=== PATIENT | female | born 1990 | race Caucasian/White ===

== ENCOUNTER 2017-04-22 15:06 | Inpatient (IN) ==
[2017-04-22] MEDS ORDERED: TYLENOL PO PRN (21:09)
[2017-04-22] MEDS ORDERED: BRETHINE SUBQ PRN (21:09)
[2017-04-22] MEDS ORDERED: PITOCIN 30 UNITS/LR 30 UNITS/500 ML IV.SOLN IV SCH (21:09)
[2017-04-22] MEDS ORDERED: PEPCID IV PRN (21:09)
[2017-04-22] MEDS ORDERED: ZOFRAN IV PRN (21:09)
[2017-04-22] MEDS ORDERED: STADOL IV PRN ×2 (21:09)
[2017-04-22] MEDS ORDERED: KEFZOL 1 GM/D5W 1 GM/50 ML IVPB IV PRN (21:09)
[2017-04-22] MEDS ORDERED: AMBIEN PO PRN (21:09)
[2017-04-22] MEDS: LR 1,000 ML IV SCH (21:40)
[2017-04-22 22:10] LABS: URINE SOURCE VOIDED
[2017-04-22 22:10] LABS: MANUAL DIFF NEEDED? NO
[2017-04-22 22:16] LABS: BASO% 0.2 % (0.0-0.8); EOS# 0.31 X1000 (0.0-0.7); EOS% 2.1 % (0.0-10.0); HEMATOCRIT 32.8 % (37.0-47.0); HEMOGLOBIN 10.8 g/dL (12.0-16.0); IMM GRAN% 0.7 % (0.0-0.5); LYMPH% 19.1 % (20.5-51.1); MCH 30.3 PG (27-31); MCHC 32.9 g/dL (33-37); MCV 91.9 FL (81-99); MONO# 0.98 X1000 (0.11-0.59); MONO% 6.7 % (1.7-9.3); MPV 11.9 FL (7.4-10.4); NEUT% 71.2 % (42.2-75.2); PLT 179 X1000 (130-400); RBC 3.57 XMIL (4.2-5.4)
[2017-04-22 22:19] LABS: BILIRUBIN URINE NEGATIVE (NEGATIVE); BLOOD URINE NEGATIVE (NEGATIVE); CLARITY SL. CLOUDY (CLEAR); COLOR YELLOW; GLUCOSE URINE NEGATIVE (NEGATIVE); LEUKOCYTES URINE NEGATIVE (NEGATIVE); NITRITE URINE NEGATIVE (NEGATIVE); PH URINE 6.5; PROTEIN URINE NEGATIVE (NEGATIVE); UROBILINOGEN URINE NORMAL
[2017-04-22 22:20] LABS: UR AMPHETAMINES QUAL NONE DETECTED (NONE DETECT); UR BARBITUATES QUAL NONE DETECTED (NONE DETECT); UR BENZODIAZEPIN QUAL NONE DETECTED (NONE DETECT); UR CANNABINOIDS QUAL NONE DETECTED (NONE DETECT); UR COCAINE QUAL NONE DETECTED (NONE DETECT); UR MDMA QUAL NONE DETECTED (NONE DETECT); UR METHADONE QUAL NONE DETECTED (NONE DETECT); UR METHAMPHETAMINE QUAL NONE DETECTED (NONE DETECT); UR OPIATES QUAL NONE DETECTED (NONE DETECT); UR OXYCODONE QUAL NONE DETECTED (NONE DETECT); UR PCP QUAL NONE DETECTED (NONE DETECT); UR TCA QUAL NONE DETECTED (NONE DETECT)
[2017-04-22] MEDS ORDERED: CYTOTEC PO ONE (23:00)
[2017-04-23] MEDS ORDERED: CYTOTEC PO SCH (03:00)
[2017-04-23] MEDS: STADOL IV PRN ×2 (04:11→08:35)
[2017-04-23] MEDS ORDERED: MINERAL OIL ONE (07:19)
[2017-04-23] MEDS ORDERED: XYLOCAINE-MPF 1% INJ ONE (07:20)
[2017-04-23] MEDS ORDERED: FENTANYL-BUPIV-NS 2 MCG-0.1% 200 ML EPIDURAL SCH (08:00)
[2017-04-23] MEDS: LR 1,000 ML IV SCH (08:25)
[2017-04-23] MEDS ORDERED: BENADRYL PO PRN (13:18)
[2017-04-23] MEDS ORDERED: BOOSTRIX VACCINE IM ONE (13:18)
[2017-04-23] MEDS ORDERED: PITOCIN 20 UNITS/LR 20 UNITS/1,000 ML IV.SOLN IV SCH (13:18)
[2017-04-23] MEDS ORDERED: XYLOCAINE-MPF 1% INJ PRN (13:18)
[2017-04-23] MEDS ORDERED: PITOCIN IM PRN (13:18)
[2017-04-23] MEDS ORDERED: HYDROXYZINE IM PRN (13:18)
[2017-04-23] MEDS ORDERED: AMBIEN PO PRN (13:18)
[2017-04-23] MEDS ORDERED: CYTOTEC PO PRN (13:18)
[2017-04-23] MEDS ORDERED: PERI MEDS (DERMOPLAST/NUPERCAINAL/TUCKS) MISC PRN (13:18)
[2017-04-23] MEDS ORDERED: HYDROXYZINE PO PRN (13:18)
[2017-04-23] MEDS ORDERED: M-M-R II VACCINE SUBQ ONE (13:18)
[2017-04-23] MEDS ORDERED: BENADRYL IV PRN (13:18)
[2017-04-23] MEDS ORDERED: MINERAL OIL PO PRN (13:18)
[2017-04-23] MEDS ORDERED: PITOCIN 30 UNITS/LR 30 UNITS/500 ML IV.SOLN IV ONE (13:18)
--- NOTE | 2017-04-23 14:23 | OPERATIVE NOTE ---
PROCEDURE DATE: 04/23/2017 PREOPERATIVE DIAGNOSES: 1. Intrauterine at 39. 2. Labor induction. 3. Tobacco use. POST DELIVERY DIAGNOSES: 1. Intrauterine at 39. 2. Labor induction. 3. Tobacco use. 4. Nuchal cord x1. PROCEDURE: Vaginal delivery. PHYSICIAN: Dr. Jamarcus Weldon. ANESTHESIA: Epidural with Dr. Oden. FINDINGS: Viable male , 9 and 10 Apgars, 8 pounds 11 ounces. No lacerations or tears. Cord was 3 vessels. Placenta was spontaneous, intact. ESTIMATED BLOOD LOSS: 100 mL. Please refer to Ms. De La Torre' records. She was admitted last night and received Cytotec and the morning she was started on Pitocin, was artificially ruptured and received epidural anesthesia and labored throughout the morning without distress or dystocia. Routine complete cervical dilatation at approximately 12:30. Began pushing and soon after crowned, at which point the bed was broken down. She was prepped and draped. With continued pushing, she delivered a viable male infant, occiput anterior, over an intact perineum. Nuchal cord was reduced around the body as it delivered and the infant was placed on mother's abdomen. Cord was doubly clamped and cut. The care of infant was taken over by nursery personnel. Cord blood was obtained. Three vessels were noted in the cord. Then gentle traction on the cord resulted in delivery of an intact placenta after approximately 3 minutes. It was inspected and then discarded. Inspection of the vagina and perineum did not reveal any lacerations. Vaginal sweep revealed no foreign material or clots so all counts were correct. Estimated blood loss 100 mL. Expect routine . cc: Jamarcus Weldon MD
[2017-04-23] MEDS: MOTRIN PO PRN (16:53)
[2017-04-23] MEDS: NORCO-5 PO PRN (20:20)
[2017-04-23] MEDS: PERICOLACE PO SCH (20:20)
[2017-04-23 21:21] LABS: UR AMPHETAMINES QUAL NONE DETECTED (NONE DETECT); UR BARBITUATES QUAL NONE DETECTED (NONE DETECT); UR BENZODIAZEPIN QUAL NONE DETECTED (NONE DETECT); UR CANNABINOIDS QUAL NONE DETECTED (NONE DETECT); UR COCAINE QUAL NONE DETECTED (NONE DETECT); UR MDMA QUAL NONE DETECTED (NONE DETECT); UR METHADONE QUAL NONE DETECTED (NONE DETECT); UR METHAMPHETAMINE QUAL NONE DETECTED (NONE DETECT); UR OPIATES QUAL NONE DETECTED (NONE DETECT); UR OXYCODONE QUAL NONE DETECTED (NONE DETECT); UR PCP QUAL NONE DETECTED (NONE DETECT); UR TCA QUAL NONE DETECTED (NONE DETECT)
[2017-04-24] MEDS: MOTRIN PO PRN ×3 (02:26→21:20)
[2017-04-24] MEDS: NORCO-5 PO PRN (02:27)
[2017-04-24 05:15] LABS: MANUAL DIFF NEEDED? NO
[2017-04-24 05:25] LABS: BASO% 0.2 % (0.0-0.8); EOS# 0.22 X1000 (0.0-0.7); EOS% 1.5 % (0.0-10.0); HEMATOCRIT 29.5 % (37.0-47.0); HEMOGLOBIN 9.5 g/dL (12.0-16.0); IMM GRAN# 0.06 X1000 (0.0-0.04); IMM GRAN% 0.4 % (0.0-0.5); LYMPH# 2.11 X1000 (1.2-3.4); LYMPH% 14.3 % (20.5-51.1); MCH 30.2 PG (27-31); MCHC 32.2 g/dL (33-37); MCV 93.7 FL (81-99); MONO# 1.32 X1000 (0.11-0.59); MONO% 8.9 % (1.7-9.3); MPV 11.9 FL (7.4-10.4); NEUT% 74.7 % (42.2-75.2); PLT 138 X1000 (130-400); RBC 3.15 XMIL (4.2-5.4)
[2017-04-24] MEDS: NORCO-10 PO PRN ×3 (07:09→19:45)
--- NOTE | 2017-04-24 11:01 | PROGRESS NOTE ---
DATE: 04/23/2017 SUBJECTIVE: day 1. No complaints. PHYSICAL EXAMINATION: Within normal limits. Hemoglobin 9.5. PLAN: Routine care. Discharge in the morning. cc: Jamarcus Weldon MD
[2017-04-24] MEDS: PERICOLACE PO SCH (21:20)
[2017-04-25] MEDS: MOTRIN PO PRN (07:28)
[2017-04-25] MEDS: NORCO-10 PO PRN (07:28)
[2017-04-25 07:33] VITALS: BP 137/85
--- NOTE | 2017-04-25 20:21 | DISCHARGE SUMMARY ---
ADMISSION DATE: 04/22/2017 DISCHARGE DATE: 04/25/2017 ADMITTING DIAGNOSIS: at 39 weeks for induction. DISCHARGE DIAGNOSIS: Vaginal delivery. CONDITION: Stable. DIET: As tolerated. ACTIVITY: Routine . MEDICATIONS: Resume vitamins with iron, [place] 5 #14. She is also to take over-the- counter nonsteroidals and follow up in 6 weeks. HOSPITAL COURSE: Please refer to Ms. De La Torre' records and delivery note. She had a successful vaginal delivery. She is currently day 2, doing well without complaints, desiring discharge. PHYSICAL EXAMINATION: Vital Signs: Stable. She is afebrile. She is alert and cooperative, in no acute distress. Neck: Supple. Lungs: Clear. Heart: Regular sinus rhythm. Abdomen: Slightly distended. Positive bowel sounds. Uterus is firm. +2 lower extremity edema. LABORATORY: Hemoglobin 9.5. DISCHARGE INSTRUCTIONS: We will discharge with the above instructions. cc: Jamarcus Weldon MD
== END 2017-04-25 11:15 | disposition home or self-care (01) ==
LOC: P.LD 21:01
PROVIDERS: ADMIT Obstetrics & Gynecology; ATTEND Obstetrics & Gynecology